=== PATIENT | male | born 1985 | race Two or more races ===

== ENCOUNTER 2025-04-30 21:39 | Day surgery (SDC) | payer MEDICAID, SELFPAY ==
[2025-04-30 21:39] VITALS: BP 129/89; PULSE 63; RESP 18; TEMP 36.7; O2SAT 98; BMI 35.2
--- NOTE | 2025-04-30 22:54 | XR_ITS ---
Examination: CT abdomen with intravenous contrast CT pelvis with intravenous contrast 2-D coronal reconstructions 2-D sagittal reconstructions Date and time of exam:May 01, 2025, 0038 hours INDICATIONS: Right lower abdominal pain beginning 11 hours ago. CTDI: vol (mGy) 10.3 DLP: (mGycm) 677. Technique: Multiple axial sections of the abdomen and pelvis have been obtained. 64 slice high-resolution scanner used. 3 mm axial sections have been obtained, post intravenous injection of 60 cc Isovue-370. 2-D sagittal, coronal reconstructions obtained. Low dose protocols were performed. One or more of the following dose reduction techniques were used; automated exposure control, adjustment of the mA and/or KV according to patient size, use of iterative reconstruction technique. Findings: No focal liver or splenic lesions No gallstones Normal pancreas. No renal or ureteral calculi, no hydronephrosis Fluid-filled enlarged inflamed appendix medial and below the cecum, coronal images 73 through 63 No pelvic abscess Bladder intact Impression : Acute appendicitis, no pelvic abscess, no perforation
[2025-04-30] MEDS: ONDANSETRON INJ 2 MG/ML INJ 2 ML 4 MG IV (23:19)
[2025-04-30] MEDS: MORPHINE SULF INJ 10 MG/ML VIAL 5 MG IVP (23:19)
--- NOTE | 2025-04-30 23:29 | EDNOTE_ITS ---
<Statement entered by Juliana Mckay MD - 05/01/25 22:22> As co-signing physician, I was present and available for consult prn. I concur with the plan and care as documented by the midlevel provider. ED Abdominal Pain RME/HPI General Chief Complaint: Abdominal Pain Stated complaint: RIGHT SIDED ABD PAIN Time seen by provider: 04/30/25 22:53 Arrival date/time: 04/30/25 21:39 39M with history of alcohol use presents to ED with 2 days of RLQ pain and N/V. Limitations: no limitations Related Data Previous Rx's ?Medication ?Instructions ?Recorded ibuprofen 600 mg tablet 600 mg PO Q6H PRN fever #30 tabs 10/26/19 ondansetron 4 mg disintegrating 4 mg PO Q8H PRN nausea and 10/26/19 tablet vomiting #14 tabs Allergies Allergy/AdvReac Type Severity Reaction Status Date / Time No Known Allergies Allergy Verified 04/30/25 21:39 Review of Systems Review of Systems Systems Reviewed: All systems reviewed, normal except as documented Constitutional Constitutional: Reports system reviewed and no additional complaints, except as documented, Denies fever(s) and Denies headache(s) ENT Ears, Nose, Mouth, and Throat: Denies disequilibrium and Denies headache(s) Cardiovascular Cardiovascular: Reports system reviewed and no additional complaints, except as documented, Denies chest pain and Denies dyspnea Respiratory Respiratory: Reports system reviewed and no additional complaints, except as documented, Denies cough and Denies dyspnea Gastrointestinal Gastrointestinal: Reports system reviewed and no additional complaints, except as documented, Reports as per HPI, Reports abdominal pain, Reports nausea and Reports vomiting Neurologic Neurologic: Reports system reviewed and no additional complaints, except as documented, Denies confusion, Denies disequilibrium and Denies headache(s) Psychiatric Psychiatric: Denies confusion Past Medical History Past Medical History CARDIAC: Negative Cardiac Disorders RESPIRATORY: Negative Asthma GENITOURINARY: Negative Renal Disease ENDOCRINE: Negative Diabetes Mellitus Type 2 HEMATOLOGIC: Negative Sickle Cell Disease Social History SMOKING STATUS: Never smoker ED Exam General Limitations: Present no limitations General appearance: Present alert and in no apparent distress Head Head exam: Present atraumatic Eye Eye exam: Present normal appearance, PERRL and EOMI ENT ENT exam: Present normal exam, normal oropharynx and mucous membranes moist Neck Neck exam: Present normal inspection, full ROM and trachea midline Chest Chest inspection: Present normal inspection and symmetric chest wall rise Respiratory Respiratory exam: Present normal lung sounds bilaterally Cardiovascular Cardiovascular exam: Present regular rate, normal rhythm and normal heart sounds Abdominal Exam Abdominal exam: Present soft and normal bowel sounds Abdominal tenderness: Present RLQ Extremities Exam Extremities exam: Present normal inspection and full ROM Back Exam Back exam: Present normal inspection and full ROM Neurological Exam Neurological exam: Present alert, oriented X3 and CN II-XII intact Psychiatric Psychiatric exam: Present normal affect and normal mood Skin Skin exam: Present warm, dry, intact and normal color Course Quality Measures none Orders Category Date Time Status Patient Condition Routine Admission 05/01/25 05:[address] in Surgical Day Care Routine Admission 05/01/25 05:48 Active COVID-19 Screening Questionnaire NOW Care 05/01/25 01:[address] Screening NOW Care 04/30/25 22:54 Active Consent [Obtain Written Consent For:] .NOW Care 05/01/25 05:47 Active Decision to Admit X1 Care 05/01/25 01:28 Completed Insert IV NOW Care 04/30/25 22:55 Active Intake and Output QSHIFT Care 05/01/25 06:00 Ordered NPO NOW Care 05/01/25 01:28 Active Notify provider NEEDED Care 05/01/25 05:48 Active Consult to General Surgery Stat Cons 05/01/25 01:28 Ordered Diet NPO (NOW) Diet 05/01/25 01:[address] abdomen pelvis w con Stat Exams 04/30/25 22:54 Taken CBC Stat Lab 04/30/25 23:20 Completed CMP [Comprehensive Metabolic Panel] Stat Lab 04/30/25 23:20 Completed Drug Screen,Urine Stat Lab 04/30/25 00:40 Completed Lipase Stat Lab 04/30/25 23:20 Completed Urinalysis, C/S if Indicated Stat Lab 04/30/25 00:40 Completed Acetaminophen Tab [Tylenol Tab] Med 05/01/25 05:47 Ordered 650 mg PO Q6H PRN Morphine Inj Med 04/30/25 22:54 Discontinued 5 mg IVP X1 ONE Ondansetron Inj [Zofran Inj] Med 04/30/25 22:54 Discontinued 4 mg IV X1 ONE Ondansetron Inj [Zofran Inj] Med 05/01/25 05:47 Ordered 4 mg IVP Q6H PRN Piper/Tazo 3.375 gm Premix [Zosyn] Med 05/01/25 01:27 Discontinued 3.375 gm in 50 ml IV X1 fentaNYL INJ [Sublimaze Inj] Med 05/01/25 01:27 Discontinued 100 mcg IVP X1 ONE Code Status Routine Oth 05/01/25 05:47 Ordered Vital Signs Vital signs: Vital Signs Temperature 98.0 F 04/30/25 21:39 Pulse Rate 63 04/30/25 21:39 Respiratory Rate 18 04/30/25 21:39 Blood Pressure 129/89 H 04/30/25 21:39 Pulse Oximetry (%) 98 04/30/25 21:39 Oxygen Delivery Method Room Air 04/30/25 21:39 O2 at 98% on RA and WNLs Abdominal Pain MDM MDM Narrative MDM Narrative:: 39M with history of alcohol use presents to ED with 2 days of RLQ pain and N/V. Physical exam reveals RLQ tenderness. Patient is afebrile, calm, and alert. CT appy. Moderate leukocytosis. CMP unremarkable. UA clean. Cocaine +. Spoke to Dr. Corrales, gen surg, who will admit patient for surgery. Patient data External records reviewed:: [facility] previous records Clinical information provided by:: patient Social determinants that could affect healthcare access:: none Patient has the following chronic illnesses:: none How is presenting disease/condition affected by chronic disease/condition?: no chronic disease Evaluation data The following diagnostics were reviewed and interpreted by me:: lab results and radiology exam(s) Lab and/or radiology exams considered but not ordered:: ordered Interpretation Summary: above Medications / Prescriptions Medications or Prescriptions considered but not ordered:: ordered Medication administrations:: Medication Administration History Acetaminophen (Acetaminophen 325 Mg Tablet) 650 mg PO Q6H PRN PRN Reason: Fever >101.5 Stop: 05/31/25 05:46 Ondansetron HCl (Ondansetron Inj 2 Mg/Ml Inj 2 Ml) 4 mg IVP Q6H PRN PRN Reason: NAUSEA OR VOMITING Stop: 05/31/25 05:46 Discontinued Medications Fentanyl Citrate (Fentanyl Cit Inj 50 Mcg/Ml Amp 2ml) 100 mcg IVP X1 ONE Stop: 05/01/25 01:28 Last Admin: 05/01/25 03:12 Dose: 100 mcg Documented By: JEREL Piperacillin/Tazobactam/Dextrose (Zosyn) 3.375 gm in 50 mls @ 100 mls/hr IV X1 ONE Stop: 05/01/25 01:56 Last Infusion: 05/01/25 03:54 Dose: Infused Documented By: Admin: 05/01/25 03:14 Dose: 100 mls/hr Documented By: JEREL Morphine Sulfate (Morphine Sulf Inj 10 Mg/Ml Vial) 5 mg IVP X1 ONE Stop: 04/30/25 22:55 Last Admin: 04/30/25 23:19 Dose: 5 mg Documented By: KHARI Ondansetron HCl (Ondansetron Inj 2 Mg/Ml Inj 2 Ml) 4 mg IV X1 ONE; Protocol Stop: 04/30/25 22:55 Last Admin: 04/30/25 23:19 Dose: 4 mg Documented By: KHARI above Consultations Consultation(s) initiated? (list below): Yes Diagnosis Differential diagnosis abdominal pain: abdominal pain, acute appendicitis, calculus of kidney, constipation, diverticulitis, gastroenteritis, pancreatitis and small bowel obstruction Most likely diagnosis given after review of the tests above:: appy Admission Indicated Admission indicated?: indicated Admission Request Was there a request for admission?: Yes Admission Attestation Admission request attestation: Discussed case with [Dr. Corrales] from General Surgery service regarding admission. Discussed patients ED course, exam findings, labs, and radiology results. The Surgeon [agrees] to accept the patient for admission. Disposition Plan Disposition Plan: Admit Discharge Plan Plan Patient Disposition: Other Care w/in Hosp ([facility]) Prescriptions/Referrals Prescriptions/Med Rec: No Action ondansetron 4 mg tablet,disintegrating 4 mg PO Q8H PRN (Reason: nausea and vomiting) Qty: 14 0RF ibuprofen 600 mg tablet 600 mg PO Q6H PRN (Reason: fever) Qty: 30 0RF Referrals: No Primary/Family,Physician [Primary Care Provider] - In 1 week Problem List Clinical Impression: Acute appendicitis Patient/Caregiver Discharge Instructions Print Language: Korean Stand Alone Forms: Esther Award Info., Patient Portal Info Letter
[2025-04-30 23:35] LABS: Basophils # (Auto) 0.1 Thou/mm3 (0.0-0.2); Basophils % (Auto) 0 % (0-2.5); Eosinophils # (Auto) 0.1 Thou/mm3 (0.0-0.5); Eosinophils % (Auto) 1 % (0-10); Hematocrit 42.8 % (41.0-53.0); Hemoglobin 15.1 g/dL (13.5-16.0); Immature Granulocytes Auto 0.06 Thou/mm3 (0.00-0.00); Lymphocytes # (Auto) 1.7 Thou/mm3 (1.0-4.8); Lymphocytes % (Auto) 10 % (10-50); Mean Corpuscular HGB Conc 35.3 g/dl (31.0-37.0); Mean Corpuscular Hemoglobin 30.7 pg (25.0-35.0); Mean Corpuscular Volume 87 fL (80-100); Monocytes # (Auto) 1.3 Thou/mm3 (0.0-0.8); Monocytes % (Auto) 8 % (0-12); Neutrophils # (Auto) 13.7 Thou/mm3 (1.8-7.7); Neutrophils % (Auto) 81 % (37-80); Nucleated Red Blood Cell # 0.00 Thou/mm3 (0.00-0.00); Nucleated Red Blood Cell % 0 /100 WBC (0); Platelet Count 273 Thou/mm3 (140-440); RDW Standard Deviation 42.5 fL (35.1-43.9); Red Blood Count 4.92 Miln/mm3 (4.50-5.90); White Blood Count 16.9 Thou/mm3 (3.8-10.6)
[2025-04-30 23:48] LABS: Alanine Aminotransferase 124 U/L (10-49); Albumin, Serum 4.9 gm/dL (3.5-5.0); Albumin/Globulin Ratio 1.5 (1.2-2.2); Alkaline Phosphatase 78 U/L (46-116); Anion Gap 12 (7-16); Aspartate Amino Transferase 62 U/L (0-34); BUN/Creatinine Ratio 7 Ratio (12-20); Bilirubin,Total 0.8 mg/dL (0.3-1.2); Blood Urea Nitrogen 7 mg/dL (9-23); Calcium 9.7 mg/dL (8.3-10.6); Calcium (Corrected) 9.7 mg/dL (8.5-10.1); Carbon Dioxide 26.5 mMol/L (20.0-31.0); Chloride 105 mMol/L (98-107); Creatinine (Component) 1.0 mg/dL (0.6-1.3); Estimated Creatinine Clearance 114.0 mL/min (>60); Globulin 3.3 gm/dL (2.3-3.5); Glucose 121 mg/dL (74-106); Lipase 30 U/L (12-53); Osmolality,Calculated 283 (275-295); Potassium 3.7 mMol/L (3.4-5.1); Sodium 143 mMol/L (136-145); Total Protein 8.2 gm/dL (5.7-8.2); eGFR > 60 See Note
[2025-05-01] VITALS (8 sets, daily range): BP systolic 118–137; BP diastolic 75–90; PULSE 60–97; RESP 14–20; TEMP 36.2–37; O2SAT 95–99
[2025-05-01 00:48] LABS: Collection Type, Urine Clean Catch
[2025-05-01 00:52] LABS: Bilirubin,Urine Negative (Negative); Blood,Urine Negative (Negative); Clarity,Urine Clear (Clear/Hazy); Color,Urine Yellow (Lt Yel-Yel); Culture Indicated,Urine Not Indicated; Glucose, Urine Negative (Negative); Ketones,Urine Negative (Negative); Leukocyte Esterase,Urine Negative (Negative); Nitrite,Urine Negative (Negative); PH,Urine 6.5 (5.0-7.0); Protein,Urine Trace (Neg - Trace); RBC,Urine 3 /hpf (0-3); Specific Gravity,Urine 1.031 (1.001-1.035); Squamous Epithelial Cell,Urine 2 /hpf (0-5); Urobilinogen,Urine Negative mg/dL (0.0-1.0); WBC,Urine 2 /hpf (0-5)
[2025-05-01 01:15] LABS: Amphetamine/Methamp Scrn,U Negative (Negative); Barbiturate Screen,Urine Negative (Negative); Benzodiazepines Screen,Urine Negative (Negative); Benzoylecgonine Screen, Ur Positive (Negative); Fentanyl Screen,Urine Negative (Negative); Opiate Screen,Urine Negative (Negative); THC Screen,Urine Negative (Negative)
--- NOTE | 2025-05-01 01:25 | PRELIM_ITS ---
CT scan of the abdomen and pelvis with intravenous contrast (axial sections with sagittal and coronal reformats) May 01, 2025 0036 hours Clinical History: RLQ pain. Comparison: No prior study is available for comparison. Findings: The appendix is thickened, measuring 11 mm (coronal images 68/164) with mild wall enhancement and periappendiceal fat stranding. There is no free fluid or free air. No evidence of bowel obstruction. The liver, gallbladder, spleen, pancreas, adrenals and kidneys are unremarkable. The urinary bladder is incompletely distended at the time of the examination. The osseous structures are unremarkable. Bibasilar atelectasis is seen. Impression: Acute appendicitis without perforation or abscess. Report Electronically Signed By: Riki Mi 05/01/2025 1:24:49 AM [EST]
[2025-05-01] MEDS: fentaNYL CIT INJ 50 mCg/ML AMP 2ML 100 MCG IVP (03:12)
[2025-05-01] MEDS: PIPER/TAZO 3.375 GM PREMIX 3.375 GM/50 ML BAG IV (03:14)
--- NOTE | 2025-05-01 06:12 | PD.SURHP ---
HPI Date of Admission 05/01/2025 Chief Complaint Chief Complaint: Right lower quadrant abdominal pain with nausea and vomiting HPI 39-year-old male without significant past medical history presented to the emergency department for acute onset of abdominal pain. This pain started yesterday around periumbilical region. The pain was initially intermittent, this pain then became persistent, progressively worse and localized to her right lower quadrant. She has had nausea and vomiting. She denies fever, chills, diarrhea, constipation or dysuria. She denies having similar symptoms in the past. Review of Systems Constitutional Constitutional: Denies chills, Denies fever(s) and Denies headache(s) ENT Ears, Nose, Mouth, and Throat: Denies disequilibrium and Denies headache(s) Cardiovascular Cardiovascular: Denies chest pain Respiratory Respiratory: Denies cough Gastrointestinal Gastrointestinal: Reports abdominal pain, Reports nausea and Reports vomiting Genitourinary Genitourinary: Denies difficulty urinating Neurologic Neurologic: Reports system reviewed and no additional complaints, except as documented, Denies confusion, Denies disequilibrium and Denies headache(s) Psychiatric Psychiatric: Denies confusion Hematologic/Lymphatic Hematologic/Lymphatic: Denies easy bleeding and Denies easy bruising Past Medical History Surgical History OTHER SURGICAL HX: No surgeries in the past Social History SMOKING STATUS: Never smoker SUBSTANCE USE: does not use ALCOHOL: Current Meds Home Medications and Allergies Allergies Allergy/AdvReac Type Severity Reaction Status Date / Time No Known Allergies Allergy Verified 04/30/25 21:39 Exam Vital Signs Temp Pulse Resp BP Pulse Ox O2 Del Method 98.2 F 97 14 137/90 H 97 Room Air 05/01/25 01:16 05/01/25 05:27 05/01/25 05:27 05/01/25 05:27 05/01/25 05:27 05/01/25 05:27 Constitutional Constitutional: no acute distress Routine Respiratory Exam Respiratory: Present CTA bilaterally Routine Cardiovascular Exam Cardiovascular: Present RRR Routine Abdominal Exam Abdominal: Present soft, normoactive bowel sounds and tenderness (Right lower quadrant tenderness to palpation with guarding, no rebound tenderness or peritonitis at this time); Absent distended Results Results: Imaging CT scan - abdomen: report reviewed and image reviewed CT scan - pelvis: report reviewed and image reviewed Assessment & Plan Problem List (1) Acute appendicitis: Qualifiers: Acute appendicitis type: unspecified acute appendicitis type Qualified Code(s): K35.80 - Unspecified acute appendicitis Status: Acute Plan Will take patient to the operating room for laparoscopic possible open appendectomy. Risks include but not limited to infection, bleeding, injury to bowel, bladder, surround neurovascular structures, abdominal sepsis and or abdominal abscess, need for further procedure and or operation discussed with the patient. Benefits and alternatives explained to him, all his questions answered, he agreed and consented to proceed with the operation. Quality Measures Quality Measures none
--- NOTE | 2025-05-01 06:29 | PC.NURSE ---
pt left to OR
--- NOTE | 2025-05-01 07:22 | SUR.PHASEI ---
pt arrived to PACU via gurney drowsy but arouses to voice, breathing unlabored, dressing to abdomen clean, dry, and intact, report from Froylan GRIMM and Dr Gonzales
--- NOTE | 2025-05-01 07:22 | ESOP_ITS ---
Date of Procedure 05/01/25 Pre Op Diagnosis Acute appendicitis Post Op Diagnosis Acute appendicitis Procedure Laparoscopic appendectomy Findings Inflamed, dilated and hyperemic appendix without perforation Procedure Description Patient was brought into the operating room in supine position. After administration of general endotracheal anesthesia, abdomen was prepped and draped in standard surgical manner. A Veress needle was inserted through the umbilicus and pneumoperitoneum was obtained up to 15 mmHg. The Veress needle was removed and a 5 mm umbilical incision was made. A 5 mm trocar was placed and laparoscopic camera was inserted. Under direct visualization a laparoscopic camera a 5 mm trocar placed in suprapubic region and a 10 mm trocar placed in left lower quadrant. The abdomen was inspected, the cecum was identified and followed until the appendix was identified. The appendix was noted to be inflamed, dilated and hyperemic without perforation. A window was created between the appendix and mesoappendix and the appendix was divided near the appendix and cecal junction with blue Endo JEFF stapling device. The mes oappendix was divided with arevalo Endo JEFF stapling device. The appendix was placed inside an Endo Catch and removed from the abdomen utilizing left lower quadrant trocar site. Abdomen and pelvis copiously and thoroughly washed and irrigated, all the fluids were suctioned and the suctioned fluid returned clear. Hemostasis was adequate and satisfactory, staple lines were intact without bleeding or any leakage. Left lower quadrant trocar sites fascial defect was closed with 0 Vicryl using Endo closure device. Instruments and trocars removed, pneumoperitoneum was evacuated and the incisions closed with 4-0 Monocryl subcuticular fashion. Instruments, needles and sponge counts were reported to be correct ??2. Patient tolerated the procedure well, was extubated, breathing spontaneously and without difficulty and was transferred to postanesthesia care in stable condition. Anesthesia GETA and local Pathology / specimen Other (Appendix) Estimated Blood Loss 10 Condition Stable Disposition PACU Surgeon Gennaro Corrales MD Surgical Staff Operation Date: 05/01/25 06:30 Case Staff Anesthesiologist: Luis Gonzales RN First Assistant: Gardenia Land
--- NOTE | 2025-05-01 08:15 | SUR.PHASEII ---
pt awake, alert, able to follow commands, breathing unlabored, dressing to abdomen clean, dry, and intact, discharge instructions given with spouse present, pt able to dress self and ambulate to wheelchair with steady gait, pt discharged via wheelchair with all belongings and copies of discharge paperwork.
== END 2025-05-01 08:15 | disposition home or self-care (01) ==
LOC: SERX 05-01 05:49 → S2EX 05-01 06:12
PROVIDERS: Physician Assistant; Emergency Provider Emergency Medicine; Referring Provider Surgery; Visit Provider Surgery
PROC: 0DTJ4ZZ Resection of Appendix, Percutaneous Endoscopic Approach (ICD-10-PCS; CPT 44970; principal; 2025-05-01 06:30)
DX: K35.30 Acute appendicitis with localized peritonitis, without perforation or gangrene (principal)
CPT/HCPCS: 44970; 36415; 74177; 80053; 80307; 81001; 83690; 85025; 96365; 96375; 99283; A4217; A4649; J0131; J0694; J2250; J2270; J2405; J2543; J2704; J3010; J3490; Q9967